=== PATIENT | male | born 1960 | race Caucasian/White ===

== ENCOUNTER → 2022-01-14 15:40 | Outpatient (CLI) | payer BC, SELFPAY ==
--- NOTE | ~2022-01-14 | XR_ITS ---
EXAMINATION: XR knee RT 2V DATE: 01/14/2022 15:55 INDICATION: Right knee pain TECHNIQUE: Two views of the right knee were obtained. COMPARISON: None. FINDINGS: Alignment is normal. No fracture or osteochondral lesion. There is mild tricompartmental os teoarthritis characterized by tiny marginal osteophytes. There is a small knee joint effusion. Soft t issues are unremarkable. IMPRESSION: 1. Mild osteoarthritis and small joint effusion without acute osseous abnormality. Reviewed, dictated and finalized at location B. IMPRESSION: 1. Mild osteoarthritis and small joint effusion without acute osseous abnormali ty.
== END ==
PROVIDERS: PCP Family Medicine; Visit Provider Family Medicine
DX: M17.11 Unilateral primary osteoarthritis, right knee (principal)
CPT/HCPCS: 73560

== ENCOUNTER 2023-03-27 01:22 | Day surgery (SDC) | payer BC, SELFPAY ==
[2023-03-07 14:39] VITALS: BMI 25.9
--- NOTE | 2023-03-26 16:46 | PM.HPGS ---
History of Present Illness History of Present Illness Consent: Risks, benefits, and alternatives have been discussed and questions answered. Patient agrees to proceed with procedure. Chief complaint: other fecal abnormalities Narrative: Baldemar Alvarado is a 62 year old male Referred for colon cancer screening. He has performed a Cologuard test that was positive. His last colonoscopy was 10 years ago Review of Systems Review of Systems: All systems reviewed & are unremarkable except as noted in HPI and below PMFSH Past Medical History Medical History History of basal cell cancer Surgical History Surgical History History of tonsillectomy and adenoidectomy Family History Family History Father Asthma Social History Social History Smoking status: Never smoker Second hand tobacco smoke exposure: No Alcohol intake: current Alcohol use details: socially Substance use: never Substance use type: does not use Living arrangements: with family Occupation/Education: occupation Gender identity (if verbalized by the patient): Male Sexual Orientation (if Verbalized by the Patient): Straight or Heterosexual Spiritual care concerns: No Meds Home Medications and Allergies Home Medications Medication Instructions Recorded Confirmed Type No Home Medications 01/27/23 03/27/23 History Allergies Allergy/AdvReac Type Severity Reaction Status Date / Time No Known Allergies Allergy Verified 03/27/23 07:18 Exam Const: General: alert Orientation/consciousness: patient oriented x3 Resp: Auscultation: clear to auscultation bilaterally Cardio: Rhythm: regular rhythm GI: GI Palp: Yes Soft to palpation and No Tenderness to palpation present (GI) Neuro: General: patient oriented x3 Assessment and Plan Assessment and plan (1) Colon cancer screening: Code(s): Z12.11 - Encounter for screening for malignant neoplasm of colon Status: Acute Assessment and Plan: Colonoscopy with possible biopsy or polypectomy or cautery or injection of substances.
[2023-03-27 07:19] VITALS: BP 118/83; PULSE 66; RESP 16; TEMP 36; O2SAT 100; BMI 25.0
[2023-03-27] MEDS: LACTATED RINGERS 1,000 ML 150 ML IV CONT (07:33)
--- NOTE | 2023-03-27 07:59 | WPDANESEPPF ---
Anes - Initial Pre Proc Eval Procedure: Operation Date: 03/27/23 08:30 Proposed Procedures p Colonoscopy - Robbi Barrera MD Date/Time: 03/27/23 07:59 Surgeon: Robbi Barrera MD Pre Op Diagnosis: other fecal abnormalities Patient Data Age: 62 Gender: M Height: 1.83 m Weight: 83.7 kg Last Vital Signs Temp 96.8 F L 03/27/23 07:19 Pulse 66 03/27/23 07:19 Resp 16 03/27/23 07:19 BP 118/83 03/27/23 07:19 Pulse Ox 100 03/27/23 07:19 O2 Del Method Room Air 03/27/23 07:19 Allergies Allergy/AdvReac Type Severity Reaction Status Date / Time No Known Allergies Allergy Verified 03/27/23 07:18 Home Medications Medication Instructions Recorded Confirmed Type No Home Medications 01/27/23 03/27/23 History Patient hx anesthesia problems: none Family hx anesthesia problems: none Results Review: All pre-operative results and documents have been reviewed as part of the pre-operative evaluation. [facility], [facility] Past Medical History Medical History History of basal cell cancer Surgical History Surgical History History of tonsillectomy and adenoidectomy Family History Family History Father Asthma Social History Social History Smoking status: Never smoker Second hand tobacco smoke exposure: No Alcohol intake: current Alcohol use details: socially Substance use: never Substance use type: does not use Living arrangements: with family Occupation/Education: occupation Gender identity (if verbalized by the patient): Male Sexual Orientation (if Verbalized by the Patient): Straight or Heterosexual Spiritual care concerns: No Anes - Eval Final PreProcedure Day of Procedure 03/27/23 07:59 Patient weight: normal Heart: regular rate and rhythm Lungs: clear to auscultation Airway: Mallampati scale class II Neurological: alert and oriented Last oral intake: >/= 8 hours ASA classification: I Emergent: no Anesthetic plan: proceed Anesthesia type and monitoring: general GIVS and standard monitoring Results Review: All pre-operative results and documents have been reviewed as part of the pre-operative evaluation. Informed Consent: The patient's anesthetic plan and its attendant risks and benefits were discussed with the patient/family/POA. Questions were solicited and answers provided to the satisfaction of the patient/family/POA.
[2023-03-27] MEDS: SIMETHICONE ORAL SUSPENSION 20 MG/0.3 ML 30 ML BOTTLE 0.6 ML IRRIGATION (08:25)
[2023-03-27 08:31] VITALS: BP 103/51; PULSE 69; RESP 17; O2SAT 98
[2023-03-27 08:41] VITALS: BP 104/57; PULSE 71; RESP 18; O2SAT 99
[2023-03-27 08:51] VITALS: BP 105/57; PULSE 60; RESP 18; O2SAT 98
== END 2023-03-27 09:09 | disposition home or self-care (01) ==
PROVIDERS: PCP Family Medicine; Visit Provider Internal Medicine Gastroenterology
PROC: 0DJD8ZZ Inspection of Lower Intestinal Tract, Via Natural or Artificial Opening Endoscopic (ICD-10-PCS; CPT 45378; principal; 2023-03-27 08:30)
DX: Z12.11 Encounter for screening for malignant neoplasm of colon (principal); D12.5 Benign neoplasm of sigmoid colon; R19.5 Other fecal abnormalities
CPT/HCPCS: 45380; 88305; J2704; J7120